=== PATIENT | female | born 1980 | race Caucasian/White ===

== ENCOUNTER → 2021-03-10 | Outpatient (CLI) | payer OTHER ==
[~2021-03-10] MED LIST: FLUT12AE2 IH; MONT10TA80 PO; MULT-445 PO; OXYC-325 PO; albuterol inhaler
== END ==
LOC: LAB 09:30
PROVIDERS: ATTEND Surgery
DX: Z01.812 Encounter for preprocedural laboratory examination (principal); Z20.822 Contact with and (suspected) exposure to COVID-19; K42.9 Umbilical hernia without obstruction or gangrene
CPT/HCPCS: U0003

== ENCOUNTER → 2021-03-15 | Day surgery (SDC) | payer OTHER ==
[~2021-03-15] MED LIST changes: +ACETAMINOPHEN 500 MG TABLET PO ONE; +ALBUTEROL SULFATE 8GM INHALER. ONE; +BUPIVACAINE-EPI 0.25%-1:200000 MPF 30 ML VIAL. ONE; +IPRATRPIUM/ALBUTEROL 0.5/2.5MG 3 ML NEBU. NEB PRN; +IV RINGERS SOLUTION,LACTATED 1,000 ML IV SCH; +MIDAZOLAM HCL PF 2 MG/2 ML VIAL. IV ONE; +MIDAZOLAM HCL PF 2 MG/2 ML VIAL. ONE; +ONDANSETRON PF 4 MG/2 ML VIAL. IV PRN; +SUCCINYLCHOLINE 200 MG/10 ML VIAL. ONE; +ceFAZolin SODIUM 1 GM VIAL ONE
[2021-03-15 08:05] LABS: U PREG PATIENT NEGATIVE (NEG)
--- NOTE | 2021-03-15 09:07 | PDOC4 ---
Operative Report DATE March 152021 at 9:06 AM Preop Diagnosis Umbilical hernia Post-op Diagnosis Same Operation Performed Umbilical hernia repair open Patient is a 40-year-old female who has a painful bulge at her umbilicus. Procedure of umbilical hernia repair was explained to the patient detail was benefits were also discussed including bleeding infection alternatives this procedure also discussed with patient who seemed to understand and gave a verbal written consent to have procedure performed. Patient was taken to the operating room placed in the supine position general anesthesia was initiated once patient was sleeping intubated her abdomen was prepped and draped in usual sterile fashion using ChloraPrep. An area just below the umbilicus was injected with quarter percent Marcaine with epinephrine once this was complete an incision was made with a 15 blade scalpel this carried down through the subcutaneous tissues electrocautery right hemostasis the hernia sac and contents were excised with electrocautery and the fascial defect was closed with a [id number] 0 Vicryl suture. The wound was then closed in a single layer 4 subicular Monocryl Mastisol Steri-Strips and island dressings were applied. Patient was awakened extubated in the operating room taken to recovery in stable condition all sponge instrument needle counts listed as correct estimated blood loss 5 mL Surgeon Demetrius Casting Trucker None ANESTHESIA PROPOSED: GENERAL, LOCAL Blood Loss 5 mL Specimen Hernia sac and contents Complications None JEAN PAUL LEAVITT MD Mar 15, 2021 09:07
--- NOTE | 2021-03-15 09:11 | DISCH ---
DISCHARGE INSTRUCTIONS-DC Condition on Discharge Condition on Discharge: Stable Activity after Discharge Activity Instructions for Disc: Avoid exertion Other activity instructions: No lifting more than 20 pounds for 2 weeks Diet after Discharge Diet after Discharge: Regular Wound/Incision Care Other wound/incision instructi: Leandra shower in 24-hour Contacting the DRJennyfer after DC Call your doctor for: If your condition worsens Follow-Up Follow up with: Dr. Leavitt in 2 weeks JEAN PAUL LEAVITT MD Mar 15, 2021 09:11
[2021-03-15 10:17] VITALS: BP 124/79
--- NOTE | 2021-03-17 16:07 | PATHOLOGY ---
[facility] Accession Number: [id number] . 01 Material submitted: . hernia - HERNIA SAC AND CONTENTS . 01 Clinical history: . UMBILICAL HERNIA . 01 Diagnosis: Fibroadipose tissue "hernia sac and contents", herniorrhaphy: - Saccular fibroadipose tissue consistent with a hernia sac. (SHA:[facility]; 03/17/2021) QTP 03/17/2021 1437 Local . 01 Electronically signed: . Charlie Lizama MD, Pathologist NPI- [id number] . 01 Gross description: . Fixative: Formalin Labeled: Umbilical hernia sac and contents Specimen received: Single segment of fibroadipose tissue Dimensions: 3.5 x 2.3 x 1.5 cm Abnormalities: None identified Submitted representatively in cassette A1. ([facility]; 03/16/2021) NRI/NRI 03/16/2021 1737 Local . 01 Pathologist provided ICD-10: K42.9 . 01 CPT . 785107 Specimen Comment: A courtesy copy of this report has been sent to [phone], [phone] Specimen Comment: [phone] Specimen Comment: Report sent to / DR ALVARENGA Specimen Comment: A duplicate report has been generated due to demographic updates. Performed at: [address], [place], [place] [id number] MD Charlie Lizama MD Phone: [phone]
== END | disposition home or self-care (01) ==
LOC: SURG 07:38 → EDUNIT# 09:45
PROVIDERS: ATTEND Surgery
DX: K42.9 Umbilical hernia without obstruction or gangrene (principal); I10 Essential (primary) hypertension; K21.9 Gastro-esophageal reflux disease without esophagitis; E78.00 Pure hypercholesterolemia, unspecified
CPT/HCPCS: 49585; 81025; A4930; J0330; J0690; J2250; J3010; J3490; J7120